=== PATIENT | female | born 1960 | race Caucasian/White ===

== ENCOUNTER 2024-07-12 07:50 | Day surgery (SDC) | payer BC, SELFPAY ==
[2024-07-12] VITALS (16 sets, daily range): BP systolic 129–148; BP diastolic 76–103; PULSE 62–77; RESP 12–16; TEMP 36.5–36.6; O2SAT 92–99; BMI 38.6
[2024-07-12] MEDS: LACTATED RINGERS 1000 ML 1,000 ML 100 ML IV (07:55)
[2024-07-12] MEDS: SODIUM CHLORIDE 0.9 % (FLUSH) 10 ML SYRINGE IVF (08:17)
--- NOTE | 2024-07-12 09:17 | W.PM.H&PU ---
History & Physical Update History & Physical Update H&P Reviewed and patient assessed: No changes noted
[2024-07-12] MEDS: CEFAZOLIN 2 GM in 0.9 % SODIUM CHLORIDE Mini-bag 100 ML IVPB (10:15)
--- NOTE | 2024-07-12 12:40 | P.ANES_ITS ---
Anesthesia Charges Start Date/Time Anesthesia Start Date: 07/12/24 Anesthesia Start Time: 10:02 Stop Date/Time Anesthesia Stop Date: 07/12/24 Anesthesia Stop Time: 12:37 Coding CPT Codes CPT Codes: ANESTH KNEE AREA SURGERY - 96177 ([id number]) P3 - PATIENT W/SEVERE SYS DISEASE, QZ - POWDER BLENDER SVC W/O INSTRUCTOR APPAREL MANUFACTURE BY
--- NOTE | 2024-07-12 12:40 | W.ANESCHARGE ---
Anesthesia Charges Start Date/Time Anesthesia Start Date: 07/12/24 Anesthesia Start Time: 10:02 Stop Date/Time Anesthesia Stop Date: 07/12/24 Anesthesia Stop Time: 12:37 Coding CPT Codes CPT Codes: ANESTH KNEE AREA SURGERY - 10170 ([id number]) P3 - PATIENT W/SEVERE SYS DISEASE, QZ - CORPORATE PLANNER SVC W/O MOSQUITO SPRAYER BY
[2024-07-12] MEDS: HYDROmorphone 0.5 mg/0.5 ml inj IVP ×2 (12:57→13:20)
[2024-07-12] MEDS: fentaNYL 100 MCG/2 ML inj 50 MCG IVP ×2 (13:04→13:11)
[2024-07-12] MEDS: hydrOXYzine pamoate 25 MG CAPSULE PO (13:30)
--- NOTE | 2024-07-12 13:30 | P.ORPRC_ITS ---
Procedure Note Date of procedure: 07/12/24 Procedure: PREOPERATIVE DIAGNOSIS: 1. Left proximal hamstring rupture, 3 tendon, acute, complete with 4 cm of retraction POSTOPERATIVE DIAGNOSIS: 1. Left proximal hamstring rupture, 3 tendon, acute, complete with 4 cm of retraction PROCEDURE: 1. Left proximal hamstring open repair SURGEON: Rock Quinn MD CLAMP JIG ASSEMBLER: Juanjose Joseph PA-C; Toni RINALDI; Delia Pickering (student) (Of note, use of an assistant at surgery was critical for this case to aid in patient positioning, tissue retraction, nerve protection, arm positioning, suture management, and closure as well as brace application.) ANESTHESIA: GETA EBL: 100 mL TOURNIQUET: None IMPLANTS: Arthrex 2.6 mm knee FiberTak double loaded anchors (x2); Arthrex 2.6 mm shoulder FiberTak (x1) COMPLICATIONS: None evident INDICATIONS FOR PROCEDURE: The patient is a pleasant 64-year-old female who sustained an injury to their left posterior thigh hamstring origin. Injury occurred within the last 2 weeks when a slip resulted in a hyperflexion of her hip while the knee was fully extended essentially doing the splits. Ultimately, they felt and heard a pop in the posterior left thigh and then noticed a bulge in the distal posterior thigh consistent with retraction of the proximal hamstring rupture. They eventually presented medical facility where physical exam was concerning for proximal hamstring rupture. An MRI was obtained and indeed confirmed the findings. 3 tendon tear. Upon evaluation in my clinic given their active lifestyle surgery was indicated. DESCRIPTION OF PROCEDURE: Following a thorough discussion of the risks, benefits and alternatives, consent was obtained and the left posterior proximal thigh was marked. They was brought to the operating room, placed supine on the operating table. Induction of general anesthesia was undertaken. Following this, the patient was flipped prone. The left lower extremity was prepped and draped in appropriate sterile fashion using ChloraPrep. Appropriate time out was performed to identify proper patient, site and procedure. 2 grams of IV Ancef was administered preoperatively. A transverse incision was made in the gluteal fold. Sharp incision through sk in, blunt dissection through subcutaneous tissue allowed protection of crossing neurovascular structures. The gluteal fascia was encountered, and released at its distal aspect. The gluteus emily was then retracted proximally and the bone origin was palpated. In fact some tendon stumps were still present on the ischium. These were debrided, and the bone exposed with combination of Santos elevator and curette. Following this, the remaining stump that had retracted distally was identified after encountering a seroma that was evacuated with suction. The stump was robust, of good integrity, and of excellent length. Unhealthy scar tissue was debrided, and prepared for eventual repair. At this stage, the 3 anchors were placed into the ischial tuberosity up the lateral side of the bone. They were drilled, and then placed with excellent security. The double loaded suture tapes were then passed in her modified Krackow fashion into the tendon stump. The 2nd suture was passed in a Justin-A llen concept to pull on the locking suture but allowed to still slide. This was done on both the more medial and lateral aspects using either the more distal or proximal anchor, respectively. After thorough irrigation normal saline, the suture was then slid through the anchor and the tendon stump reapproximated. The medial/distal anchor was 1st secured followed by the lateral more proximal anchor. The tendon indeed reapposed against the bone appropriately. Again thorough irrigation was performed with normal saline. 2-0 Vicryl allowed reapproximation of the gluteal fascia followed by 2-O Vicryl and 4-0 Monocryl for subcutaneous and subcuticular closure, respectively. Dressings were applied. T scope knee brace was applied with the knee in 45 degrees of flexion. Patient awoke from anesthesia and was transferred to the Post-Anesthesia Care Unit in stable condition. PLAN: 1. Ice and elevate operative upper extremity. 2. Range of motion of knee and ankle as tolerated. 3. Follow up with PA visit in 10 days. Likely initiate physical therapy for edema control, ROM, isometric strenthening / e-stim. 4. Ibuprofen, Tylenol, and/or oxycodone for pain as needed.
[2024-07-12] MEDS: OXYCODONE 5 MG TABLET PO (13:35)
[2024-07-12] MEDS: ACETAMINOPHEN 325 MG TABLET PO (13:35)
== END 2024-07-12 14:34 | disposition home or self-care (01) ==
PROVIDERS: PCP Family Medicine; Visit Provider Orthopaedic Surgery Sports Medicine
PROC: (CPT 27650; principal; 2024-07-12 10:00)
DX: S76.312A Strain of muscle, fascia and tendon of the posterior muscle group at thigh level, left thigh, initial encounter (principal)
CPT/HCPCS: 27385; 01320; A9270; C1713; J0330; J0690; J1100; J1171; J1885; J2405; J2704; J3010; J3490; J7120